=== PATIENT | female | born 1940 | race Caucasian/White ===

== ENCOUNTER 2020-02-03 11:19 | Emergency (ER) | payer MEDICARE ==
[~2020-02-03] VITALS: Ht 165.1 cm; Wt 68.2 kg
[~2020-02-03 11:19] MED LIST: DIFL5DRO EACHEYE; LACT1CAP26 PO; MAGN400T28 PO; METO-467 PO; NEPA1.7D OP; OFLO5DRO3 EACHEYE; PANT-47 PO
[2020-02-03] MEDS ORDERED: HYDROcodone/acetaminophen 5mg/325mg tablet PO ONE (11:55)
[2020-02-03] MEDS ORDERED: cyclobenzaprine 10mg tablet PO ONE (11:55)
[2020-02-03] MEDS ORDERED: LIDOcaine 5% patch TP SCH (11:55)
[2020-02-03 12:28] LABS: BASOPHILS % (AUTO) 0.5 % (0-1); EOSINOPHILS # (AUTO) 0.1 X10'3 (0-0.9); EOSINOPHILS % (AUTO) 1.3 % (0-6); HEMATOCRIT 38.7 % (35.0-45.0); LYMPHOCYTES # (AUTO) 0.9 X10'3 (1.1-4.8); LYMPHOCYTES % (AUTO) 9.8 % (21-51); MEAN CORPUSCULAR HEMOGLOBIN 33.5 PG (27.0-31.0); MEAN CORPUSCULAR HGB CONC 33.5 g/dL (33.0-36.5); MEAN PLATELET VOLUME 7.2 FL (7.4-10.4); MONOCYTES # (AUTO) 1.1 X10'3 (0-0.9); MONOCYTES % (AUTO) 11.7 % (2-12); NEUTROPHILS # (AUTO) 7.4 X10'3 (1.8-7.7); NEUTROPHILS % (AUTO) 76.7 % (42-75); PLATELET COUNT 283 X10'3 (140-440); RED BLOOD COUNT 3.87 X10'6 (4.20-5.60); RED CELL DISTRIBUTION WIDTH 14.4 % (11.5-14.5); WHITE BLOOD COUNT 9.7 X10'3 (4.5-11.0)
[2020-02-03 12:48] LABS: PARTIAL THROMBOPLASTIN TIME 30 SECONDS (22-32)
[2020-02-03 12:51] LABS: ALANINE AMINOTRANSFERASE 17 U/L (12-78); ALBUMIN 3.9 G/DL (3.4-5.0); ALBUMIN/GLOBULIN RATIO 1.1 (1.1-1.5); ALKALINE PHOSPHATASE 160 IU/L (46-116); ANION GAP 5 (8-16); ASPARTATE AMINO TRANSFERASE 26 U/L (10-37); BILIRUBIN,TOTAL 0.5 MG/DL (0.1-1.0); BLOOD UREA NITROGEN 17 MG/DL (7-18); CALCIUM 9.8 MG/DL (8.5-10.1); CHLORIDE 95 MMOL/L (99-107); CREATININE 0.81 MG/DL (0.40-0.90); GLUCOSE 110 MG/DL (70-104); POTASSIUM 5.3 MMOL/L (3.5-5.1); SODIUM 129 MMOL/L (135-145); TOTAL CARBON DIOXIDE 29.4 MMOL/L (24-32); TOTAL PROTEIN 7.5 G/DL (6.4-8.2); eGFR 69 ML/MIN
[2020-02-03] MEDS ORDERED: normal saline 1000ml 1,000 ML IV ONE (13:00)
[2020-02-03 13:03] LABS: MAGNESIUM 1.9 MG/DL (1.5-2.4); PHOSPHORUS 3.7 MG/DL (2.3-4.5)
[2020-02-03] MEDS ORDERED: morphine 4 MG/ML inj SYRINge IV ONE (14:20)
[2020-02-03 15:07] LABS: CLARITY,URINE CLEAR (Clear); COLOR,URINE STRAW (Yellow); GLUCOSE, URINE NEGATIVE (Neg); KETONES,URINE NEGATIVE (Neg); LEUKOCYTE ESTERASE ,URINE NEGATIVE (Neg); NITRITES, URINE NEGATIVE (Neg); OCCULT BLOOD,URINE NEGATIVE (Neg); PH,URINE 7.5 (4.8-8.0); PROTEIN,URINE NEGATIVE (Neg); UA COLLECTION TYPE CLN CATCH MIDSTREAM; UROBILINOGEN,URINE 0.2 E.U/dL (0.2-1.0)
[2020-02-03 15:26] VITALS: BP 177/103
--- NOTE | 2020-02-03 15:51 | NUR ---
Patient is ambulating with a walker. Able to sit up in bed and stand with putting weight on the walker, little pain, not like earlier she said. Patient is now walking down [address], lifting her left foot (which she said she wasn't able to do ealier without a lot of pain).
--- NOTE | 2020-02-03 15:57 | NUR ---
Patient ambulated once around the entire unit. Stating that she is walking better now then at home. Pain is getting better.
[2020-02-03] MEDS ORDERED: HYDR-3965 PO (16:00)
== END 2020-02-03 17:20 | disposition home or self-care (01) ==
LOC: ER 11:19
DX: G89.29 Other chronic pain (principal); M54.5 Low back pain; H26.9 Unspecified cataract; I11.0 Hypertensive heart disease with heart failure; I50.9 Heart failure, unspecified; E78.00 Pure hypercholesterolemia, unspecified; Z98.890 Other specified postprocedural states; Z88.0 Allergy status to penicillin; Z79.899 Other long term (current) drug therapy
CPT/HCPCS: 36415; 71045; 80053; 81003; 83735; 84100; 85025; 85610; 85730; 93005; 96374; 99285; J2270

== ENCOUNTER 2022-05-01 14:30 | Emergency (ER) | payer MEDICARE ==
[~2022-05-01] VITALS: Ht 165.1 cm; Wt 65.0 kg
[~2022-05-01 14:30] MED LIST changes: -MAGN400T28 PO; +MAGN400T56 PO
[2022-05-01 15:20] LABS: BASOPHILS # (AUTO) 0.1 X10'3 (0-0.2); BASOPHILS % (AUTO) 0.2 % (0-1); EOSINOPHILS # (AUTO) 0.1 X10'3 (0-0.9); EOSINOPHILS % (AUTO) 0.6 % (0-6); HEMATOCRIT 35.4 % (35.0-45.0); LYMPHOCYTES # (AUTO) 1.8 X10'3 (1.1-4.8); MEAN CORPUSCULAR HEMOGLOBIN 30.6 PG (27.0-31.0); MEAN CORPUSCULAR HGB CONC 33.7 g/dL (33.0-36.5); MEAN CORPUSCULAR VOLUME 90.8 FL (78-98); MEAN PLATELET VOLUME 7.1 FL (7.4-10.4); MONOCYTES # (AUTO) 1.8 X10'3 (0-0.9); MONOCYTES % (AUTO) 7.9 % (2-12); NEUTROPHILS # (AUTO) 18.4 X10'3 (1.8-7.7); NEUTROPHILS % (AUTO) 83.3 % (42-75); PLATELET COUNT 538 X10'3 (140-440); RED BLOOD COUNT 3.91 X10'6 (4.20-5.60); RED CELL DISTRIBUTION WIDTH 14.1 % (11.5-14.5); WHITE BLOOD COUNT 22.2 X10'3 (4.5-11.0)
[2022-05-01 15:26] LABS: ALANINE AMINOTRANSFERASE 17 U/L (12-78); ALBUMIN 3.1 G/DL (3.4-5.0); ALBUMIN/GLOBULIN RATIO 0.7 (1.1-1.5); ALKALINE PHOSPHATASE 102 IU/L (46-116); ANION GAP 8 (8-16); ASPARTATE AMINO TRANSFERASE 22 U/L (10-37); BILIRUBIN,TOTAL 0.4 MG/DL (0.1-1.0); BLOOD UREA NITROGEN 19 MG/DL (7-18); CALCIUM 9.3 MG/DL (8.5-10.1); CHLORIDE 90 MMOL/L (99-107); CREATININE 0.95 MG/DL (0.40-0.90); GLUCOSE 96 MG/DL (70-104); POTASSIUM 3.6 MMOL/L (3.5-5.1); SODIUM 129 MMOL/L (135-145); TOTAL CARBON DIOXIDE 30.9 MMOL/L (24-32); TOTAL PROTEIN 7.6 G/DL (6.4-8.2); eGFR 57 ML/MIN
[2022-05-01] MEDS ORDERED: normal saline 1000ml 1,000 ML IV ONE (17:35)
[2022-05-01 17:42] LABS: CLARITY,URINE CLEAR (Clear); COLOR,URINE YELLOW (Yellow); GLUCOSE, URINE NEGATIVE (Neg); KETONES,URINE TRACE mg/dl (Neg); LEUKOCYTE ESTERASE ,URINE NEGATIVE (Neg); NITRITES, URINE NEGATIVE (Neg); OCCULT BLOOD,URINE NEGATIVE (Neg); PROTEIN,URINE NEGATIVE (Neg); UROBILINOGEN,URINE 0.2 E.U/dL (0.2-1.0)
[2022-05-01 17:50] LABS: UA COLLECTION TYPE NON-SPECIFIED
[2022-05-01] MEDS ORDERED: metroNIDAZOLE-Flagyl 500mg/NS 100 ML IV ONE (19:05)
[2022-05-01] MEDS ORDERED: CIPROFLOXACIN 400MG/200ML premix IV SCH (20:00)
[2022-05-01] MEDS ORDERED: ciprofloxacin lact 400MG/200ML 200 ML IV SCH (20:00)
[2022-05-01] MEDS ORDERED: ondansetron/PF 4mg/2ml inj IV ONE (20:15)
[2022-05-01] MEDS ORDERED: morphine 4 MG/ML inj SYRINge IV ONE ×2 (20:15→21:55)
[2022-05-01] MEDS ORDERED: CIPR-259 PO ×2 (21:40)
[2022-05-01] MEDS ORDERED: ONDA4TAB12 PO ×2 (21:40)
[2022-05-01 22:26] VITALS: BP 125/47
[2022-05-03] MEDS ORDERED: FURO20TA4 PO (14:25)
[2022-05-03] MEDS ORDERED: LISI20TA28 PO (14:25)
[2022-05-03] MEDS ORDERED: DULO60CA65 PO (14:25)
[2022-05-03] MEDS ORDERED: CELE-85 PO (14:25)
[2022-05-03] MEDS ORDERED: AMLO5TAB PO (14:25)
[2022-05-03] MEDS ORDERED: ATOR40TA71 PO (14:25)
[2022-05-03] MEDS ORDERED: CELE100C98 PO (14:28)
[2022-05-03] MEDS ORDERED: CIPR-202 PO (14:37)
[2022-05-03] MEDS ORDERED: ONDA8TAB13 PO (14:43)
[2022-05-03] MEDS ORDERED: PANT40TA54 PO (14:43)
== END 2022-05-01 22:29 | disposition home or self-care (01) ==
LOC: ER 14:31
DX: K52.9 Noninfective gastroenteritis and colitis, unspecified (principal); R11.2 Nausea with vomiting, unspecified; E78.00 Pure hypercholesterolemia, unspecified; I10 Essential (primary) hypertension; I25.2 Old myocardial infarction; G89.29 Other chronic pain; Z98.890 Other specified postprocedural states; Z88.0 Allergy status to penicillin; Z79.2 Long term (current) use of antibiotics; Z79.899 Other long term (current) drug therapy
CPT/HCPCS: 96361; 96365; 96367; 96375; 96376; 99285; J0744; J2270; J2405; J3490; J7030; 36415; 74176; 80053; 81003; 83605; 84145; 84484; 85025; 87040; 87502; 87503; 93005

== ENCOUNTER 2022-05-22 10:05 | Emergency (ER) | payer MEDICARE ==
[~2022-05-22] VITALS: Ht 165.1 cm; Wt 63.6 kg
[~2022-05-22 10:05] MED LIST changes: +AMLO5TAB PO; +ATOR40TA71 PO; +CELE100C98 PO; +CIPR-202 PO; -DIFL5DRO EACHEYE; +DULO60CA65 PO; +FURO20TA4 PO; +LISI20TA28 PO; -MAGN400T56 PO; -METO-467 PO; -NEPA1.7D OP; -OFLO5DRO3 EACHEYE; +ONDA8TAB13 PO; -PANT-47 PO; +PANT40TA54 PO
[2022-05-22 14:01] LABS: BASOPHILS # (AUTO) 0.1 X10'3 (0-0.2); BASOPHILS % (AUTO) 0.9 % (0-1); EOSINOPHILS # (AUTO) 0.3 X10'3 (0-0.9); EOSINOPHILS % (AUTO) 3.6 % (0-6); HEMATOCRIT 27.4 % (35.0-45.0); HEMOGLOBIN 9.2 g/dl (12.0-16.0); LYMPHOCYTES % (AUTO) 12.1 % (21-51); MEAN CORPUSCULAR HGB CONC 33.7 g/dL (33.0-36.5); MEAN CORPUSCULAR VOLUME 89.1 FL (78-98); MEAN PLATELET VOLUME 7.3 FL (7.4-10.4); MONOCYTES # (AUTO) 1.1 X10'3 (0-0.9); MONOCYTES % (AUTO) 12.8 % (2-12); NEUTROPHILS # (AUTO) 6.1 X10'3 (1.8-7.7); NEUTROPHILS % (AUTO) 70.6 % (42-75); PLATELET COUNT 495 X10'3 (140-440); RED BLOOD COUNT 3.08 X10'6 (4.20-5.60); RED CELL DISTRIBUTION WIDTH 16.1 % (11.5-14.5); WHITE BLOOD COUNT 8.6 X10'3 (4.5-11.0)
[2022-05-22 14:02] LABS: CLARITY,URINE CLOUDY (Clear); COLOR,URINE YELLOW (Yellow); GLUCOSE, URINE NEGATIVE (Neg); KETONES,URINE NEGATIVE (Neg); LEUKOCYTE ESTERASE ,URINE MODERATE (Neg); NITRITES, URINE NEGATIVE (Neg); OCCULT BLOOD,URINE NEGATIVE (Neg); PROTEIN,URINE NEGATIVE (Neg); UROBILINOGEN,URINE 0.2 E.U/dL (0.2-1.0)
[2022-05-22 14:12] LABS: UA COLLECTION TYPE CLN CATCH MIDSTREAM
[2022-05-22 14:13] LABS: HYALINE CASTS 0-3 /LPF (NEGATIVE); MUCUS STRANDS FEW /LPF (Neg); SQUAMOUS EPITHELIAL CELL,UR MODERATE /LPF (FEW); TRANSITIONAL EPI CELLS,URINE MODERATE /HPF
[2022-05-22 14:14] LABS: BACTERIA,URINE 1+ /HPF (Neg)
[2022-05-22 14:15] LABS: YEAST FEW /HPF (NEGATIVE)
[2022-05-22 14:17] LABS: ALANINE AMINOTRANSFERASE 18 U/L (12-78); ALBUMIN 2.1 G/DL (3.4-5.0); ALBUMIN/GLOBULIN RATIO 0.6 (1.1-1.5); ALKALINE PHOSPHATASE 82 IU/L (46-116); ANION GAP 3 (8-16); ASPARTATE AMINO TRANSFERASE 22 U/L (10-37); BILIRUBIN,TOTAL 0.2 MG/DL (0.1-1.0); BLOOD UREA NITROGEN 9 MG/DL (7-18); BUN/CREATININE RATIO 11.1 (6.6-38.0); CALCIUM 8.5 MG/DL (8.5-10.1); CHLORIDE 95 MMOL/L (99-107); CREATININE 0.81 MG/DL (0.40-0.90); GLUCOSE 93 MG/DL (70-104); LIPASE 187 U/L (73-393); SODIUM 137 MMOL/L (135-145); TOTAL CARBON DIOXIDE 39.4 MMOL/L (24-32); TOTAL PROTEIN 5.7 G/DL (6.4-8.2); eGFR 68 ML/MIN
[2022-05-22 14:30] VITALS: BP 128/56
--- NOTE | 2022-05-22 14:45 | NUR ---
[facility] IN ROUTE, 15 MIN ETA.
== END 2022-05-22 14:42 | disposition home or self-care (01) ==
LOC: ER 10:05
DX: Z48.00 Encounter for change or removal of nonsurgical wound dressing (principal); R10.84 Generalized abdominal pain; R53.1 Weakness; E78.00 Pure hypercholesterolemia, unspecified; I10 Essential (primary) hypertension; I25.2 Old myocardial infarction; G89.29 Other chronic pain; Z98.890 Other specified postprocedural states; Z88.0 Allergy status to penicillin; Z79.2 Long term (current) use of antibiotics; Z79.899 Other long term (current) drug therapy
CPT/HCPCS: 36415; 80053; 81001; 83690; 85025; 87088; 99285

== ENCOUNTER 2022-07-04 08:14 | Day surgery (SDC) | payer MEDICARE ==
[2022-06-28 12:03] LABS: CLARITY,URINE CLEAR (Clear); COLOR,URINE YELLOW (Yellow); GLUCOSE, URINE NEGATIVE (Neg); KETONES,URINE NEGATIVE (Neg); LEUKOCYTE ESTERASE ,URINE TRACE (Neg); NITRITES, URINE NEGATIVE (Neg); OCCULT BLOOD,URINE NEGATIVE (Neg); PROTEIN,URINE NEGATIVE (Neg); UROBILINOGEN,URINE 0.2 E.U/dL (0.2-1.0)
[2022-06-28 12:06] LABS: UA COLLECTION TYPE CLN CATCH MIDSTREAM
[2022-06-28 12:17] LABS: ALBUMIN 3.5 G/DL (3.4-5.0); ALBUMIN/GLOBULIN RATIO 0.7 (1.1-1.5); ALKALINE PHOSPHATASE 86 IU/L (46-116); BLOOD UREA NITROGEN 15 MG/DL (7-18); BUN/CREATININE RATIO 15.2 (6.6-38.0); CALCIUM 9.6 MG/DL (8.5-10.1); CHLORIDE 98 MMOL/L (99-107); CREATININE 0.99 MG/DL (0.40-0.90); PRE OP ALT 13 U/L (30-65); PRE OP ANION GAP 10 (8-16); PRE OP AST 19 U/L (10-37); PRE OP BILIRUB, TOTAL 0.4 MG/DL (0.0-1.0); PRE OP GLUCOSE 98 MG/DL (70-104); PRE OP POTASSIUM 3.8 MMOL/L (3.4-5.1); PRE OP SODIUM 134 MMOL/L (135-145); TOTAL CARBON DIOXIDE 25.8 MMOL/L (24-32); TOTAL PROTEIN 8.2 G/DL (6.4-8.2); eGFR 54 ML/MIN
[2022-06-28 12:32] LABS: SQUAMOUS EPITHELIAL CELL,UR MODERATE /LPF (FEW)
[2022-06-28 12:33] LABS: BACTERIA,URINE 1+ /HPF (Neg); MUCUS STRANDS FEW /LPF (Neg); RBC,URINE NONE SEEN /HPF (0-2)
[2022-07-04] VITALS (7 sets, daily range): BP systolic 138–177; BP diastolic 58–81
[~2022-07-04] VITALS: Ht 165.1 cm; Wt 60.9 kg
[~2022-07-04 08:14] MED LIST changes: -CELE100C98 PO; -CIPR-202 PO; +CYAN100087 PO; +FERR324T4 PO; +FOLI1TAB27 PO; +clindamycin-Cleocin 900mg/D5W 50 ML IV ONE; +famotidine 20mg tablet PO ONE; +ringers solution, lacted 1,000 ML IV SCH
[2022-07-04 10:04] LABS: BASOPHILS # (AUTO) 0.1 X10'3 (0-0.2); BASOPHILS % (AUTO) 0.6 % (0-1); EOSINOPHILS # (AUTO) 0.2 X10'3 (0-0.9); EOSINOPHILS % (AUTO) 1.9 % (0-6); LYMPHOCYTES # (AUTO) 1.2 X10'3 (1.1-4.8); MEAN CORPUSCULAR HEMOGLOBIN 29.2 PG (27.0-31.0); MEAN CORPUSCULAR HGB CONC 33.2 g/dL (33.0-36.5); MEAN CORPUSCULAR VOLUME 87.9 FL (78-98); MEAN PLATELET VOLUME 6.9 FL (7.4-10.4); MONOCYTES % (AUTO) 10.6 % (2-12); NEUTROPHILS # (AUTO) 6.8 X10'3 (1.8-7.7); NEUTROPHILS % (AUTO) 73.9 % (42-75); PRE OP HEMATOCRIT 33.2 % (35.0-45.0); PRE OP PLATELET COUNT 403 X10'3 (140-440); RED BLOOD COUNT 3.78 X10'6 (4.20-5.60); RED CELL DISTRIBUTION WIDTH 15.7 % (11.5-14.5)
[2022-07-04] MEDS ORDERED: fentaNYL/PF 50MCG/1 ML 2ML syringe IV PRN ×2 (12:30)
[2022-07-04] MEDS ORDERED: ondansetron/PF 4mg/2ml inj IV PRN (12:30)
[2022-07-04] MEDS ORDERED: hydrALAZINE 20mg/ml inj. IV PRN (12:30)
[2022-07-04] MEDS ORDERED: morphine 4 MG/ML inj SYRINge IV PRN (12:30)
[2022-07-04] MEDS ORDERED: morphine 2 MG/ML inj. syringe IV PRN (12:30)
[2022-07-04] MEDS ORDERED: ringers solution, lacted 1,000 ML IV SCH (12:30)
[2022-07-04] MEDS ORDERED: labetalol 20mg/4ml (5mg/ml) syringe IV PRN (12:30)
[2022-07-04] MEDS ORDERED: PHENYLephrine 10mg/ml 5ml injection IV ONE (13:22)
[2022-07-04] MEDS ORDERED: sevoflurane 250ml liquid IH ONE (13:22)
[2022-07-04] MEDS ORDERED: propofol inj 20 ML IV ONE (13:30)
[2022-07-04] MEDS ORDERED: LIDOcaine 2% (20mg/ml) 5ml vial ONE (13:30)
[2022-07-04] MEDS ORDERED: fentaNYL/PF 50MCG/1 ML 2ML syringe ONE (13:33)
[2022-07-04] MEDS ORDERED: midazolam 1 mg/ML 2ml injection ONE (13:33)
[2022-07-04] MEDS ORDERED: dexamethasone sod phosphate 4mg/ml inj. ONE (13:34)
[2022-07-04] MEDS ORDERED: ondansetron/PF 4mg/2ml inj ONE (13:35)
--- NOTE | 2022-07-04 14:20 | NUR ---
Received from OR via [facility], accompanied by Anesthesiologist and report given by NARGIS Anesthesiologist. PATIENT WAKING UP, ABDOMEN PAIN OF 5/, WILL MEDICATE, V/S WNL, PIV 20G RAC, WOUNDVAC DRESSING C/D/I WITH 125 MMHG TO ABDOMEN. Addendum: 07/04/22 at 1437 by Andrés Rock RN Amended: Links added.
--- NOTE | 2022-07-04 15:15 | NUR ---
ALL DISCHARGE CRITERIA HAS BEEN MET. VSS, PAIN AT A TOLERABLE LEVEL, ABLE TO SAFELY AMBULATE AND TRANSFER SELF. IV TAKEN OUT WITHOUT ANY COMPLICATIONS. ALL DISCHARGE INSTRUCTIONS COVERED WITH PATIENT AND ALL QUESTIONS ANSWERED. PATIENT TAKEN OUT VIA WHEELCHAIR WITH ALL BELONGINGS TO PERSONAL VEHICLE WHERE FAMILY/FRIEND DROVE PATIENT HOME. Addendum: 07/04/22 at 1525 by Andrés Rock RN Amended: Links added.
== END 2022-07-04 15:15 | disposition home or self-care (01) ==
LOC: PAS 08:14
PROVIDERS: ATTEND Surgery
DX: T81.89XA Other complications of procedures, not elsewhere classified, initial encounter (principal); I10 Essential (primary) hypertension; I25.2 Old myocardial infarction; Y83.8 Other surgical procedures as the cause of abnormal reaction of the patient, or of later complication, without mention of misadventure at the time of the procedure; F32.9 Major depressive disorder, single episode, unspecified; Z88.0 Allergy status to penicillin; Z79.899 Other long term (current) drug therapy; Z98.890 Other specified postprocedural states; Z90.710 Acquired absence of both cervix and uterus; M19.90 Unspecified osteoarthritis, unspecified site
CPT/HCPCS: 11043; 36415; 80053; 81001; 82948; 85025; 87088; 87811; J1100; J2250; J2270; J2370; J2405; J2704; J3010; J3490; J7030; J7120; Z7506; Z7512; A4618; A6550; A7000

== ENCOUNTER 2023-04-30 16:33 | Emergency (ER) | payer MEDICARE, MEDICAID ==
[~2023-04-30] VITALS: Ht 165.1 cm; Wt 63.6 kg
[~2023-04-30 16:33] MED LIST changes: -clindamycin-Cleocin 900mg/D5W 50 ML IV ONE; -famotidine 20mg tablet PO ONE; -ringers solution, lacted 1,000 ML IV SCH
[2023-04-30 16:48] VITALS: BP 133/79
[2023-04-30] MEDS ORDERED: bacitracin 15gm ointment TP ONE (17:40)
[2023-04-30] MEDS ORDERED: LIDOcaine 1% W/epiNEPHrine 1:100,000 20ml vial IJ ONE (17:53)
[2023-04-30] MEDS ORDERED: CLIN-97 PO (18:56)
[2023-04-30] MEDS ORDERED: clindamycin 150mg capsule PO ONE (19:00)
[2023-05-03] MEDS ORDERED: MULT-1085 PO (10:54)
[2023-05-03] MEDS ORDERED: LACT1CAP26 PO (10:54)
== END 2023-04-30 19:12 | disposition home or self-care (01) ==
LOC: ER 16:33
DX: S81.812A Laceration without foreign body, left lower leg, initial encounter (principal); E78.00 Pure hypercholesterolemia, unspecified; I10 Essential (primary) hypertension; G89.29 Other chronic pain; W18.39XA Other fall on same level, initial encounter; Y93.89 Activity, other specified; Y92.89 Other specified places as the place of occurrence of the external cause; Y99.8 Other external cause status
CPT/HCPCS: 12002; 73590; 99284; A6449

== ENCOUNTER → 2023-12-10 | Outpatient (CLI) | payer MEDICARE, MEDICAID ==
[~2023-12-10] MED LIST changes: +ACET-1008 PO; -AMLO5TAB PO; +DULO30CA52 PO; -DULO60CA65 PO; -FERR324T4 PO; -FURO20TA4 PO; +IRON PO; +LISI10TA27 PO; -LISI20TA28 PO; +MULT-1085 PO; +OXYC-134 PO
== END | disposition home or self-care (01) ==
LOC: RAD 14:39
PROVIDERS: ATTEND Pediatrics Sports Medicine
DX: S42.201A Unspecified fracture of upper end of right humerus, initial encounter for closed fracture (principal); M25.511 Pain in right shoulder; M25.411 Effusion, right shoulder; X58.XXXA Exposure to other specified factors, initial encounter; Y93.89 Activity, other specified; Y92.89 Other specified places as the place of occurrence of the external cause; Y99.8 Other external cause status
CPT/HCPCS: 73200

== ENCOUNTER 2024-01-02 08:21 | Outpatient (CLI) | payer MEDICARE, MEDICAID ==
[2024-01-02] MEDS ORDERED: iohexol 350MG/ML 100ml bottle IV ONE (08:37)
== END 2024-01-02 23:59 | disposition home or self-care (01) ==
LOC: RAD 08:21
PROVIDERS: ATTEND Specialist
DX: S42.241A 4-part fracture of surgical neck of right humerus, initial encounter for closed fracture (principal); M25.511 Pain in right shoulder; I70.8 Atherosclerosis of other arteries; X58.XXXA Exposure to other specified factors, initial encounter; Y93.89 Activity, other specified; Y92.89 Other specified places as the place of occurrence of the external cause; Y99.8 Other external cause status
CPT/HCPCS: 73206; J3490; Q9967

== ENCOUNTER 2024-07-04 13:44 | Emergency (ER) | payer MEDICARE, MEDICAID ==
[~2024-07-04] VITALS: Ht 167.6 cm; Wt 139.0 kg
[~2024-07-04 13:44] MED LIST changes: +ONDA-245 PO; -ONDA8TAB13 PO
[2024-07-04] MEDS ORDERED: NIRM1TAB7 PO (15:47)
[2024-07-04] MEDS ORDERED: AZIT250T PO (15:47)
[2024-07-04] MEDS ORDERED: PRED10TA23 PO (15:47)
[2024-07-04 16:01] VITALS: BP 118/63; PULSE 101; TEMP 98.7; O2SAT 97
[2024-07-04 16:02] VITALS: RESP 16
== END 2024-07-04 16:03 | disposition home or self-care (01) ==
LOC: ER 13:45
DX: U07.1 COVID-19 (principal); E78.00 Pure hypercholesterolemia, unspecified; I10 Essential (primary) hypertension; I25.2 Old myocardial infarction; G89.29 Other chronic pain; Z98.890 Other specified postprocedural states; Z88.0 Allergy status to penicillin; Z79.2 Long term (current) use of antibiotics; Z79.899 Other long term (current) drug therapy
CPT/HCPCS: 36415; 71045; 87811; 99284

== ENCOUNTER 2025-03-24 13:28 | Outpatient (CLI) | payer MEDICARE, MEDICAID ==
[~2025-03-24 13:28] MED LIST changes: +AZIT250T PO; +NIRM1TAB7 PO
== END 2025-03-24 23:59 | disposition home or self-care (01) ==
LOC: MRI02 13:28
PROVIDERS: ATTEND Pediatrics Sports Medicine
DX: S32.000A Wedge compression fracture of unspecified lumbar vertebra, initial encounter for closed fracture (principal); M51.17 Intervertebral disc disorders with radiculopathy, lumbosacral region; M51.35 Other intervertebral disc degeneration, thoracolumbar region; M54.50 Low back pain, unspecified; M47.816 Spondylosis without myelopathy or radiculopathy, lumbar region; M46.1 Sacroiliitis, not elsewhere classified; M99.04 Segmental and somatic dysfunction of sacral region; M48.07 Spinal stenosis, lumbosacral region; M48.05 Spinal stenosis, thoracolumbar region; X58.XXXA Exposure to other specified factors, initial encounter; Y93.89 Activity, other specified; Y92.89 Other specified places as the place of occurrence of the external cause; Y99.8 Other external cause status
CPT/HCPCS: 72148